=== PATIENT | female | born 2000 | race Caucasian/White ===

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

== ENCOUNTER 2018-08-06 19:27 | Inpatient (IN) | payer MEDICAID ==
[2018-08-06] MEDS: SOD CHLORIDE 0.9% 1,000 ML IV (23:31)
[2018-08-06] MEDS: ONDANSETRON 4 MG INJ IV (23:31)
[2018-08-06 23:41] LABS: ABNORMAL IP MESSAGE 1; HEMATOCRIT 30.6 % (37.0-47.0); HEMOGLOBIN 10.3 g/dl (12.0-16.0); MEAN CORPUSCULAR HEMOGLOBIN 29.7 pg (29.0-33.0); MEAN CORPUSCULAR HGB CONC 33.7 g/dl (32.0-37.0); MEAN CORPUSCULAR VOLUME 88.2 fl (72.0-104.0); MEAN PLATELET VOLUME 12.3 fl (7.4-10.4); PLATELET COUNT 125 10^3/UL (140-415); RED BLOOD COUNT 3.47 10^6/ul (4.20-5.40); RED CELL DISTRIBUTION WIDTH 14.3 % (11.5-14.5)
[2018-08-06 23:41] LABS: WHITE BLOOD COUNT 1.9 10^3/ul (4.8-10.8)
[2018-08-06 23:46] LABS: ADD MAN DIFF? YES; POSITIVE DIFF @See below
[2018-08-06 23:55] LABS: ADD UMIC YES; UR ASCORBIC ACID NEGATIVE (NEGATIVE); UR BACTERIA FEW /HPF (NONE SEEN); UR BILIRUBIN (Dip) NEGATIVE (NEGATIVE); UR BLOOD (Dip) 2+ mg/dL (NEGATIVE); UR CLARITY SLIGHTLY CLOUDY (CLEAR); UR COLOR AMBER (YELLOW); UR GLUCOSE (Dip) NEGATIVE (NEGATIVE); UR KETONES (Dip) NEGATIVE (NEGATIVE); UR LEUKOCYTE ESTERASE (Dip) NEGATIVE Leu/ul (NEGATIVE); UR NITRITE (Dip) NEGATIVE (NEGATIVE); UR RBC 10 /HPF (0-5); UR SPECIFIC GRAVITY (Dip) 1.019 (1.003-1.030); UR TOTAL PROTEIN (Dip) 3+ mg/dl (NEGATIVE); UR UROBILINOGEN (Dip) 1+ mg/dL (NEGATIVE); UR WBC 9 /HPF (0-5)
[2018-08-07 00:03] LABS: ALANINE AMINOTRANSFERASE 446 IU/L (13-69); ALBUMIN 2.5 g/dl (3.3-4.9); ALBUMIN/GLOBULIN RATIO 0.62; ALKALINE PHOSPHATASE 174 IU/L (42-121); ANION GAP 5 (5-13); BILIRUBIN,INDIRECT 0.4 mg/dl (0-1.1); BILIRUBIN,TOTAL 0.4 mg/dl (0.2-1.3); BLOOD UREA NITROGEN 24 mg/dl (7-20); CALCIUM 7.3 mg/dl (8.4-10.2); CARBON DIOXIDE 20 mmol/L (21-31); CHLORIDE 109 mmol/L (97-110); CREATININE 1.39 mg/dl (0.44-1.00); Estimated GFR 49 mL/min (>60); GLUCOSE 104 mg/dl (70-220); LIPASE 512 U/L (23-300); POTASSIUM 4.3 mmol/L (3.5-5.1); SODIUM 134 mmol/L (135-144); TOTAL PROTEIN 6.5 g/dl (6.1-8.1)
[2018-08-07 00:07] LABS: INR 0.89; PARTIAL THROMBOPLASTIN TIME 37.4 Sec (23.0-35.0); PROTIME 12.2 Sec (11.9-14.9)
[2018-08-07 00:10] LABS: ASPARTATE AMINO TRANSFERASE 777 IU/L (15-46)
[2018-08-07] MEDS: KETOROLAC 15 MG INJ IV (00:59)
[2018-08-07] MEDS: ONDANSETRON 4 MG INJ IV ×4 (02:32→17:50)
[2018-08-07] MEDS: morphine 2 MG INJ IV (02:33)
[2018-08-07 03:14] LABS: ANISOCYTOSIS 1+ (0-0); BAND NEUTROPHILS % (M) 4 % (0-10); EOSINOPHILS % (M) 6 % (0-7); GIANT THROMBO% (M) 4 % (0-0); LYMPHOCYTES % (M) 5 % (18-55); METAMYELOCYTES %M 1 % (0-0); MONOCYTES % (M) 4 % (0-13); PLATELET ESTIMATE DECREASED; POIKILOCYTOSIS 2+ (0-0); REACTIVE LYMPHOCYTES% (M) 1 % (0-0); SEG NEUT #M 1.5 10^3/ul (1.6-7.5); SEGMENTED NEUTROPHILS (M) % 79 % (30-74); SMUDGE%M 75 % (0-0)
[2018-08-07] MEDS: morphine 4 MG/ML VIAL IV (06:28)
[2018-08-07] MEDS ORDERED: NACL 0.9% 3 ML SYG IV (07:30)
[2018-08-07] MEDS: SOD CHLORIDE 0.9% 1,000 ML IV ×3 (07:39→20:59)
[2018-08-07] MEDS: DEXAMETHASONE 4 MG/ML 1 ML INJ IV ×2 (09:24→20:58)
[2018-08-07] MEDS: HYDROCODONE/APAP (5/325) TAB PO (09:28)
[2018-08-07] MEDS: CEFTRIAXONE 1 GM/50 ML (PMX) 50 ML IVPB (09:33)
[2018-08-07 15:36] LABS: IRON 88 ug/dl (35-150)
[2018-08-07 15:46] LABS: % IRON SATURATION 36 % SAT (22-52); TOTAL IRON BINDING CAPACITY 245 ug/dl (241-421)
[2018-08-07 15:58] LABS: COMPLEMENT C3 < 40 mg/dl (88-165); COMPLEMENT C4 < 8 mg/dl (14-44)
[2018-08-07 16:10] LABS: HEPATITIS B SURFACE ANTIGEN NEGATIVE (NEGATIVE)
[2018-08-07 16:17] LABS: HIV 1&2 ANTIBODY NEGATIVE (NEGATIVE)
[2018-08-07 16:28] LABS: HEPATITIS B CORE ANTIBODY NEGATIVE (NEGATIVE); HEPATITIS C VIRAL ANTIBODY NEGATIVE (NEGATIVE)
[2018-08-07 16:39] LABS: FOLATE 13.9 ng/ml (2.8-20.0)
[2018-08-08] MEDS: ONDANSETRON 4 MG INJ IV ×2 (04:16→23:25)
[2018-08-08] MEDS: HYDROCODONE/APAP (5/325) TAB PO ×4 (04:17→23:28)
[2018-08-08] MEDS: SOD CHLORIDE 0.9% 1,000 ML IV (06:11)
[2018-08-08 06:25] LABS: HAAIG REFLEX REFLEX FILED
[2018-08-08 06:31] LABS: WHITE BLOOD COUNT 1.5 10^3/ul (4.8-10.8)
[2018-08-08 06:31] LABS: ABNORMAL IP MESSAGE 1; HEMOGLOBIN 10.4 g/dl (12.0-16.0); MEAN CORPUSCULAR HEMOGLOBIN 29.8 pg (29.0-33.0); MEAN CORPUSCULAR HGB CONC 33.5 g/dl (32.0-37.0); MEAN CORPUSCULAR VOLUME 88.8 fl (72.0-104.0); MEAN PLATELET VOLUME 12.4 fl (7.4-10.4); PLATELET COUNT 127 10^3/UL (140-415); RED BLOOD COUNT 3.49 10^6/ul (4.20-5.40); RED CELL DISTRIBUTION WIDTH 14.5 % (11.5-14.5)
[2018-08-08 06:35] LABS: POSITIVE DIFF @See below
[2018-08-08 06:36] LABS: ADD MAN DIFF? YES
[2018-08-08 06:49] LABS: ALANINE AMINOTRANSFERASE 282 IU/L (13-69); ALBUMIN 2.1 g/dl (3.3-4.9); ALBUMIN/GLOBULIN RATIO 0.63; ALKALINE PHOSPHATASE 129 IU/L (42-121); ANION GAP 2 (5-13); ASPARTATE AMINO TRANSFERASE 425 IU/L (15-46); BILIRUBIN,INDIRECT 0.3 mg/dl (0-1.1); BILIRUBIN,TOTAL 0.3 mg/dl (0.2-1.3); BLOOD UREA NITROGEN 29 mg/dl (7-20); CALCIUM 6.3 mg/dl (8.4-10.2); CARBON DIOXIDE 20 mmol/L (21-31); CHLORIDE 114 mmol/L (97-110); CREATININE 1.28 mg/dl (0.44-1.00); Estimated GFR 54 mL/min (>60); GLUCOSE 126 mg/dl (70-220); MAGNESIUM 1.2 mg/dl (1.7-2.5); POTASSIUM 4.6 mmol/L (3.5-5.1); SODIUM 136 mmol/L (135-144); TOTAL PROTEIN 5.4 g/dl (6.1-8.1)
[2018-08-08 06:50] LABS: LIPASE 476 U/L (23-300)
[2018-08-08 06:50] LABS: AMYLASE 226 U/L (11-123)
[2018-08-08 06:51] LABS: CHOL/HDL RATIO 6.8 RATIO; HDL CHOLESTEROL 23 mg/dl (33-83); LDL CHOLESTEROL,CALCULATED 73 mg/dl; TRIGLYCERIDES 309 mg/dl (0-149)
[2018-08-08 06:51] LABS: CHOLESTEROL 158 mg/dl (85-185)
[2018-08-08 07:19] LABS: HEPATITIS B SURFACE ANTIGEN NEGATIVE (NEGATIVE)
[2018-08-08 07:37] LABS: HEPATITIS B CORE ANTIBODY NEGATIVE (NEGATIVE); HEPATITIS C VIRAL ANTIBODY NEGATIVE (NEGATIVE)
[2018-08-08 08:05] LABS: BAND NEUTROPHILS #M 0.3 10^3/ul (0.0-0.6); BAND NEUTROPHILS % (M) 22 % (0-10); BURR CELLS 3+ (0-0); GIANT THROMBO% (M) 30 % (0-0); LYMPHOCYTES #M 0.1 10^3/ul (0.8-2.9); LYMPHOCYTES % (M) 10 % (18-55); MONOCYTES % (M) 5 % (0-13); MYELOCYTES % (M) 3 % (0-0); PLATELET ESTIMATE DECREASED; POIKILOCYTOSIS 3+ (0-0); REACTIVE LYMPHOCYTES% (M) 1 % (0-0); SEG NEUT #M 0.9 10^3/ul (1.6-7.5); SEGMENTED NEUTROPHILS (M) % 59 % (30-74); SMUDGE%M 41 % (0-0); SPHEROCYTES 1+ (0-0)
[2018-08-08] MEDS ORDERED: METHYLPRED. NA SUCC 500 MG in DEXTROSE 5% 50 ML IVPB (08:12)
[2018-08-08 08:40] LABS: IMMUNOGLOBULIN A 330 mg/dl (70-400); IMMUNOGLOBULIN G 1639 mg/dl (700-1600); IMMUNOGLOBULIN M 196 mg/dl (40-230)
[2018-08-08] MEDS: CEFTRIAXONE 1 GM/50 ML (PMX) 50 ML IVPB (09:38)
[2018-08-08] MEDS: MAGNESIUM SULFATE 2 GM/50 ML 50 ML IVPB (09:54)
[2018-08-08 10:42] LABS: C-REACTIVE PROTEIN < 0.5 mg/dl (0.0-0.9)
[2018-08-08] MEDS: METHYLPRED. NA SUCC 500 MG in DEXTROSE 5% 50 ML IVPB (12:39)
[2018-08-08] MEDS: MAGNESIUM SULFATE 4 GM/100 ML 100 ML IVPB (17:17)
[2018-08-08 20:22] LABS: EBV VIRAL CAPSID AG AB (IGM) <36.00 U/mL
[2018-08-08 21:33] LABS: RHEUMATOID FACTOR NEGATIVE (NEGATIVE)
[2018-08-09] MEDS: SOD CHLORIDE 0.9% 1,000 ML IV ×3 (03:36→17:55)
[2018-08-09] MEDS: ONDANSETRON 4 MG INJ IV (07:21)
[2018-08-09] MEDS: HYDROCODONE/APAP (5/325) TAB PO ×3 (07:21→22:23)
[2018-08-09] MEDS: CEFTRIAXONE 1 GM/50 ML (PMX) 50 ML IVPB (08:09)
[2018-08-09 08:47] LABS: ABNORMAL IP MESSAGE 1; HEMOGLOBIN 10.4 g/dl (12.0-16.0); MEAN CORPUSCULAR HEMOGLOBIN 29.7 pg (29.0-33.0); MEAN CORPUSCULAR HGB CONC 33.5 g/dl (32.0-37.0); MEAN CORPUSCULAR VOLUME 88.6 fl (72.0-104.0); MEAN PLATELET VOLUME 12.4 fl (7.4-10.4); PLATELET COUNT 180 10^3/UL (140-415); RED CELL DISTRIBUTION WIDTH 14.7 % (11.5-14.5)
[2018-08-09 08:47] LABS: WHITE BLOOD COUNT 2.9 10^3/ul (4.8-10.8)
[2018-08-09 08:50] LABS: ADD MAN DIFF? YES; POSITIVE DIFF @See below
[2018-08-09 09:02] LABS: ANION GAP 3 (5-13); BLOOD UREA NITROGEN 28 mg/dl (7-20); CARBON DIOXIDE 21 mmol/L (21-31); CHLORIDE 115 mmol/L (97-110); CREATININE 1.13 mg/dl (0.44-1.00); Estimated GFR > 60 mL/min (>60); GLUCOSE 131 mg/dl (70-220); MAGNESIUM 2.6 mg/dl (1.7-2.5); PHOSPHORUS 3.4 mg/dl (2.5-4.9); POTASSIUM 3.8 mmol/L (3.5-5.1); SODIUM 139 mmol/L (135-144)
[2018-08-09 09:09] LABS: CALCIUM 5.9 mg/dl (8.4-10.2)
[2018-08-09] MEDS: ALBUTEROL/IPRATROPIUM (NEB) 3 ML AMP HHN (09:13)
[2018-08-09] MEDS: METHYLPRED. NA SUCC 1,000 MG in DEXTROSE 5% 50 ML IVPB (09:50)
[2018-08-09 10:24] LABS: BAND NEUTROPHILS #M 0.2 10^3/ul (0.0-0.6); BAND NEUTROPHILS % (M) 8 % (0-10); BURR CELLS 1+ (0-0); GIANT THROMBO% (M) 6 % (0-0); LYMPHOCYTES #M 0.2 10^3/ul (0.8-2.9); LYMPHOCYTES % (M) 10 % (18-55); METAMYELOCYTES %M 1 % (0-0); MONOCYTE #M 0.1 10^3/ul (0.3-0.9); MONOCYTES % (M) 5 % (0-13); OVALOCYTES 1+ (0-0); PLATELET ESTIMATE NORMAL; POIKILOCYTOSIS 3+ (0-0); POLYCHROMASIA 2+ (0-0); PROMYELOCYTES % (M) 1 % (0-0); REACTIVE LYMPHOCYTES% (M) 2 % (0-0); SEG NEUT #M 2.1 10^3/ul (1.6-7.5); SEGMENTED NEUTROPHILS (M) % 73 % (30-74); SMUDGE%M 60 % (0-0)
[2018-08-09 11:26] LABS: MYELOPEROXIDASE ANTIBODY <1.0 AI; PROTEINASE-3 ANTIBODY <1.0 AI
[2018-08-09 12:12] LABS: MITOCHONDRIAL TB NEGATIVE (NEGATIVE); SMOOTH MUSCLE AB SCREEN NEGATIVE (NEGATIVE)
[2018-08-09] MEDS: CALCIUM GLUCONATE 10% 2 GM in DEXTROSE 5% 100 ML IVPB (12:24)
[2018-08-09] MEDS: LIDOCAINE 1% (MPF) 5 ML VIAL (12:36)
[2018-08-09 16:28] LABS: CSF RBC 0 /uL (0-0); CSF WBC 2 /cmm (0-10)
[2018-08-09 16:33] LABS: CSF RBC 0 /uL (0-0); CSF WBC 1 /cmm (0-10)
[2018-08-09 16:43] LABS: CSF CLARITY CLEAR; CSF VOLUME 9.5 ml; CSF#TUBES REC'D 4
[2018-08-09 16:43] LABS: CSF COLOR COLORLESS
[2018-08-09 16:44] LABS: CSF#TUBE COUNT TUBE#4
[2018-08-09 16:45] LABS: CSF CLARITY CLEAR; CSF COLOR COLORLESS; CSF VOLUME 9.5 ml
[2018-08-09 16:46] LABS: CSF#TUBE COUNT TUBE#1; CSF#TUBES REC'D 4
[2018-08-09 16:56] LABS: ANTI-DNA (DOUBLE STRANDED) <95 U/mL (< 301)
[2018-08-09 17:01] LABS: TOTAL PROTEIN,CSF 40 mg/dl (12-60)
[2018-08-09 17:01] LABS: GLUCOSE,CSF 90 mg/dl (50-80)
[2018-08-09] MEDS: DRONABINOL 2.5 MG CAP PO (17:53)
[2018-08-09 21:32] LABS: CMV DNA QL SOURCE WHOLE BLOOD
[2018-08-10 08:30] LABS: ADD MAN DIFF? NO
[2018-08-10] MEDS: DRONABINOL 2.5 MG CAP PO (08:31)
[2018-08-10] MEDS: METHYLPRED. NA SUCC 1,000 MG in DEXTROSE 5% 50 ML IVPB (08:32)
[2018-08-10 08:37] LABS: ABNORMAL IP MESSAGE 1; HEMATOCRIT 28.5 % (37.0-47.0); HEMOGLOBIN 9.6 g/dl (12.0-16.0); LYMPHOCYTES # 0.5 10^3/ul (0.8-2.9); LYMPHOCYTES % 11.6 % (18.0-55.0); MEAN CORPUSCULAR HEMOGLOBIN 29.8 pg (29.0-33.0); MEAN CORPUSCULAR HGB CONC 33.7 g/dl (32.0-37.0); MEAN CORPUSCULAR VOLUME 88.5 fl (72.0-104.0); MEAN PLATELET VOLUME 11.9 fl (7.4-10.4); MONOCYTE # 0.6 10^3/ul (0.3-0.9); MONOCYTES % 14.5 % (0.0-13.0); NEUTROPHILS % 72.7 % (30.0-74.0); PLATELET COUNT 202 10^3/UL (140-415); RED BLOOD COUNT 3.22 10^6/ul (4.20-5.40); RED CELL DISTRIBUTION WIDTH 14.7 % (11.5-14.5)
[2018-08-10 08:37] LABS: WHITE BLOOD COUNT 4.2 10^3/ul (4.8-10.8)
[2018-08-10 08:41] LABS: POSITIVE DIFF @See below
[2018-08-10 08:57] LABS: ALANINE AMINOTRANSFERASE 211 IU/L (13-69); ALBUMIN 2.2 g/dl (3.3-4.9); ALBUMIN/GLOBULIN RATIO 0.64; ALKALINE PHOSPHATASE 143 IU/L (42-121); ANION GAP 4 (5-13); ASPARTATE AMINO TRANSFERASE 240 IU/L (15-46); BILIRUBIN,INDIRECT 0.2 mg/dl (0-1.1); BILIRUBIN,TOTAL 0.2 mg/dl (0.2-1.3); BLOOD UREA NITROGEN 26 mg/dl (7-20); CALCIUM 6.4 mg/dl (8.4-10.2); CARBON DIOXIDE 21 mmol/L (21-31); CHLORIDE 117 mmol/L (97-110); Estimated GFR > 60 mL/min (>60); GLUCOSE 112 mg/dl (70-220); LIPASE 458 U/L (23-300); POTASSIUM 3.5 mmol/L (3.5-5.1); SODIUM 142 mmol/L (135-144); TOTAL PROTEIN 5.6 g/dl (6.1-8.1)
[2018-08-10 08:59] LABS: MAGNESIUM 1.8 mg/dl (1.7-2.5)
[2018-08-10 08:59] LABS: PHOSPHORUS 3.3 mg/dl (2.5-4.9)
[2018-08-10] MEDS: CEFTRIAXONE 1 GM/50 ML (PMX) 50 ML IVPB (09:22)
[2018-08-10] MEDS: CHOLECALCIFEROL 1,000 UNIT TAB PO (09:28)
[2018-08-10] MEDS: HYDROCODONE/APAP (5/325) TAB PO ×3 (09:29→23:21)
[2018-08-10] MEDS: ONDANSETRON 4 MG INJ IV (12:35)
[2018-08-11] MEDS: ONDANSETRON 4 MG INJ IV ×3 (01:29→14:30)
[2018-08-11] MEDS: morphine 4 MG/ML VIAL IV ×3 (03:10→21:07)
[2018-08-11] MEDS: HYDROCODONE/APAP (5/325) TAB PO ×4 (04:10→20:27)
[2018-08-11 08:09] LABS: ADD MAN DIFF? NO
[2018-08-11 08:15] LABS: WHITE BLOOD COUNT 4.1 10^3/ul (4.8-10.8)
[2018-08-11 08:15] LABS: HEMATOCRIT 28.2 % (37.0-47.0); HEMOGLOBIN 9.5 g/dl (12.0-16.0); LYMPHOCYTES # 0.6 10^3/ul (0.8-2.9); MEAN CORPUSCULAR HEMOGLOBIN 29.7 pg (29.0-33.0); MEAN CORPUSCULAR HGB CONC 33.7 g/dl (32.0-37.0); MEAN CORPUSCULAR VOLUME 88.1 fl (72.0-104.0); MEAN PLATELET VOLUME 12.3 fl (7.4-10.4); MONOCYTE # 0.6 10^3/ul (0.3-0.9); MONOCYTES % 14.5 % (0.0-13.0); NEUTROPHIL # 2.8 10^3/ul (1.6-7.5); NEUTROPHILS % 69.5 % (30.0-74.0); PLATELET COUNT 198 10^3/UL (140-415); RED CELL DISTRIBUTION WIDTH 14.4 % (11.5-14.5)
[2018-08-11] MEDS: CEFTRIAXONE 1 GM/50 ML (PMX) 50 ML IVPB (08:16)
[2018-08-11] MEDS: CHOLECALCIFEROL 1,000 UNIT TAB PO (08:16)
[2018-08-11] MEDS: DRONABINOL 2.5 MG CAP PO ×3 (08:17→21:45)
[2018-08-11 08:44] LABS: ALANINE AMINOTRANSFERASE 186 IU/L (13-69); ALBUMIN 2.2 g/dl (3.3-4.9); ALBUMIN/GLOBULIN RATIO 0.68; ALKALINE PHOSPHATASE 122 IU/L (42-121); ANION GAP 6 (5-13); ASPARTATE AMINO TRANSFERASE 166 IU/L (15-46); BILIRUBIN,INDIRECT 0.3 mg/dl (0-1.1); BILIRUBIN,TOTAL 0.3 mg/dl (0.2-1.3); BLOOD UREA NITROGEN 30 mg/dl (7-20); CALCIUM 6.4 mg/dl (8.4-10.2); CARBON DIOXIDE 22 mmol/L (21-31); CHLORIDE 112 mmol/L (97-110); CREATININE 0.99 mg/dl (0.44-1.00); Estimated GFR > 60 mL/min (>60); GLUCOSE 111 mg/dl (70-220); SODIUM 140 mmol/L (135-144); TOTAL PROTEIN 5.4 g/dl (6.1-8.1)
[2018-08-11 08:48] LABS: PHOSPHORUS 4.1 mg/dl (2.5-4.9)
[2018-08-11 08:48] LABS: MAGNESIUM 1.5 mg/dl (1.7-2.5)
[2018-08-11] MEDS: METHYLPRED. NA SUCC 1,000 MG in DEXTROSE 5% 50 ML IVPB (09:11)
[2018-08-11] MEDS: CALCITRIOL 0.25 MCG CAP PO (09:17)
[2018-08-11 09:26] LABS: ADD UMIC YES; UR ASCORBIC ACID NEGATIVE (NEGATIVE); UR BILIRUBIN (Dip) NEGATIVE (NEGATIVE); UR BLOOD (Dip) 2+ mg/dL (NEGATIVE); UR CLARITY CLEAR (CLEAR); UR COLOR YELLOW (YELLOW); UR GLUCOSE (Dip) NEGATIVE (NEGATIVE); UR KETONES (Dip) NEGATIVE (NEGATIVE); UR LEUKOCYTE ESTERASE (Dip) NEGATIVE Leu/ul (NEGATIVE); UR NITRITE (Dip) NEGATIVE (NEGATIVE); UR RBC 4 /HPF (0-5); UR SPECIFIC GRAVITY (Dip) 1.016 (1.003-1.030); UR TOTAL PROTEIN (Dip) 3+ mg/dl (NEGATIVE); UR UROBILINOGEN (Dip) 1+ mg/dL (NEGATIVE); UR WBC 11 /HPF (0-5)
[2018-08-11 09:33] LABS: CREATININE,URINE RANDOM 50.33 mg/dl (20-320)
[2018-08-11 09:33] LABS: SODIUM,URINE RANDOM 136 mmol/L (30-90)
[2018-08-11 11:21] LABS: COMPLEMENT C3 < 40 mg/dl (88-165); COMPLEMENT C4 < 8 mg/dl (14-44)
[2018-08-11] MEDS: POTASSIUM CHLORIDE (SR) 20 MEQ TAB PO (14:27)
[2018-08-11] MEDS: ALBUTEROL/IPRATROPIUM (NEB) 3 ML AMP HHN (19:04)
[2018-08-12 00:11] LABS: PLATELET ANTIBODY - IGA NEGATIVE (NEGATIVE); PLATELET ANTIBODY - IGG NEGATIVE (NEGATIVE); PLATELET ANTIBODY - IGM NEGATIVE (NEGATIVE)
[2018-08-12] MEDS: ONDANSETRON 4 MG INJ IV (03:11)
[2018-08-12] MEDS: DRONABINOL 2.5 MG CAP PO (08:06)
[2018-08-12] MEDS: CALCITRIOL 0.25 MCG CAP PO (08:07)
[2018-08-12] MEDS: CHOLECALCIFEROL 1,000 UNIT TAB PO (08:07)
[2018-08-12] MEDS: HYDROCODONE/APAP (5/325) TAB PO ×3 (08:07→19:02)
[2018-08-12] MEDS: CEFTRIAXONE 1 GM/50 ML (PMX) 50 ML IVPB (08:08)
[2018-08-12 08:37] LABS: ADD MAN DIFF? NO
[2018-08-12] MEDS ORDERED: morphine 2 MG INJ IV (08:37)
[2018-08-12 08:42] LABS: HEMATOCRIT 27.3 % (37.0-47.0); HEMOGLOBIN 9.3 g/dl (12.0-16.0); LYMPHOCYTES # 0.7 10^3/ul (0.8-2.9); LYMPHOCYTES % 18.1 % (18.0-55.0); MEAN CORPUSCULAR HEMOGLOBIN 29.4 pg (29.0-33.0); MEAN CORPUSCULAR HGB CONC 34.1 g/dl (32.0-37.0); MEAN CORPUSCULAR VOLUME 86.4 fl (72.0-104.0); MEAN PLATELET VOLUME 11.5 fl (7.4-10.4); MONOCYTE # 0.5 10^3/ul (0.3-0.9); NEUTROPHIL # 2.8 10^3/ul (1.6-7.5); NEUTROPHILS % 68.2 % (30.0-74.0); PLATELET COUNT 201 10^3/UL (140-415); RED BLOOD COUNT 3.16 10^6/ul (4.20-5.40); RED CELL DISTRIBUTION WIDTH 14.2 % (11.5-14.5)
[2018-08-12 08:42] LABS: WHITE BLOOD COUNT 4.1 10^3/ul (4.8-10.8)
[2018-08-12 09:04] LABS: PHOSPHORUS 3.5 mg/dl (2.5-4.9)
[2018-08-12 09:04] LABS: MAGNESIUM 1.5 mg/dl (1.7-2.5)
[2018-08-12] MEDS: morphine 2 MG INJ IV ×2 (09:06→20:52)
[2018-08-12 09:16] LABS: ALANINE AMINOTRANSFERASE 169 IU/L (13-69); ALBUMIN 2.2 g/dl (3.3-4.9); ALBUMIN/GLOBULIN RATIO 0.68; ALKALINE PHOSPHATASE 97 IU/L (42-121); ANION GAP 2 (5-13); ASPARTATE AMINO TRANSFERASE 129 IU/L (15-46); BILIRUBIN,INDIRECT 0.4 mg/dl (0-1.1); BILIRUBIN,TOTAL 0.4 mg/dl (0.2-1.3); BLOOD UREA NITROGEN 38 mg/dl (7-20); CALCIUM 6.9 mg/dl (8.4-10.2); CARBON DIOXIDE 26 mmol/L (21-31); CHLORIDE 112 mmol/L (97-110); CREATINE KINASE 133 IU/L (23-200); CREATININE 0.92 mg/dl (0.44-1.00); Estimated GFR > 60 mL/min (>60); GLUCOSE 97 mg/dl (70-220); POTASSIUM 3.3 mmol/L (3.5-5.1); SODIUM 140 mmol/L (135-144); TOTAL PROTEIN 5.4 g/dl (6.1-8.1)
[2018-08-12 10:57] LABS: HEXAGONAL PHASE CONFIRMATION POSITIVE (NEGATIVE); THROMBIN CLOTTING TIME 19 sec (13-19)
[2018-08-12] MEDS: ACETAMINOPHEN 325 MG TAB PO (15:20)
[2018-08-12 17:17] LABS: CREATININE, RANDOM URINE 58 mg/dL (20-275); MICROALBUMIN 198.6 mg/dL; MICROALBUMIN/CREATININE RATIO 3424 (<30)
[2018-08-12 18:46] LABS: ANA SCREEN POSITIVE (NEGATIVE)
[2018-08-12] MEDS: KETOROLAC 15 MG INJ IV (22:06)
[2018-08-13] MEDS: ONDANSETRON 4 MG INJ IV ×3 (04:45→22:26)
[2018-08-13] MEDS: morphine 2 MG INJ IV ×3 (04:52→15:25)
[2018-08-13] MEDS: KETOROLAC 15 MG INJ IV ×2 (05:25→13:16)
[2018-08-13 08:03] LABS: ADD MAN DIFF? NO
[2018-08-13 08:07] LABS: HEMATOCRIT 26.3 % (37.0-47.0); LYMPHOCYTES # 0.9 10^3/ul (0.8-2.9); LYMPHOCYTES % 17.2 % (18.0-55.0); MEAN CORPUSCULAR HEMOGLOBIN 29.8 pg (29.0-33.0); MEAN CORPUSCULAR HGB CONC 34.2 g/dl (32.0-37.0); MEAN CORPUSCULAR VOLUME 87.1 fl (72.0-104.0); MEAN PLATELET VOLUME 11.8 fl (7.4-10.4); MONOCYTE # 0.4 10^3/ul (0.3-0.9); MONOCYTES % 8.5 % (0.0-13.0); NEUTROPHIL # 3.8 10^3/ul (1.6-7.5); NEUTROPHILS % 73.1 % (30.0-74.0); PLATELET COUNT 184 10^3/UL (140-415); RED BLOOD COUNT 3.02 10^6/ul (4.20-5.40)
[2018-08-13 08:07] LABS: WHITE BLOOD COUNT 5.2 10^3/ul (4.8-10.8)
[2018-08-13 08:08] LABS: RETICULOCYTE RBC 2.95
[2018-08-13 08:08] LABS: RETICULOCYTE COUNT % 1.4 % (0.5-1.5)
[2018-08-13 08:33] LABS: ANION GAP 2 (5-13); BLOOD UREA NITROGEN 40 mg/dl (7-20); CARBON DIOXIDE 27 mmol/L (21-31); CHLORIDE 111 mmol/L (97-110); Estimated GFR > 60 mL/min (>60); GLUCOSE 91 mg/dl (70-220); MAGNESIUM 1.4 mg/dl (1.7-2.5); PHOSPHORUS 3.5 mg/dl (2.5-4.9); POTASSIUM 3.1 mmol/L (3.5-5.1); SODIUM 140 mmol/L (135-144)
[2018-08-13] MEDS: CHOLECALCIFEROL 1,000 UNIT TAB PO (09:00)
[2018-08-13] MEDS: DRONABINOL 2.5 MG CAP PO (09:00)
[2018-08-13] MEDS: CALCITRIOL 0.25 MCG CAP PO (09:00)
[2018-08-13] MEDS: HYDROmorphONE 0.5 MG/0.5 ML SYG IV (10:15)
[2018-08-13 11:57] LABS: PROTEIN, TOTAL 5.1 g/dL (6.3-8.2)
[2018-08-13] MEDS ORDERED: morphine 2 MG INJ IV (13:00)
[2018-08-13] MEDS: METHYLPREDNISOLONE 125 MG INJ IV ×2 (13:11→22:25)
[2018-08-13 15:08] LABS: ANA PATTERN HOMOGENEOUS
[2018-08-13] MEDS: POTASSIUM CHLORIDE (SR) 20 MEQ TAB PO (15:30)
[2018-08-13] MEDS: HYDROmorphONE 1 MG/ML SYG IV (16:25)
[2018-08-13 17:31] LABS: CARDIOLIPIN AB - IGA <11 APL; CARDIOLIPIN AB - IGG 37 GPL; CARDIOLIPIN AB - IGM 18 MPL; CREATININE, RANDOM URINE 85 mg/dL (20-275); PROTEIN/CREATININE RATIO 6153 mg/g creat (21-161)
[2018-08-13] MEDS: MAGNESIUM SULFATE 1 GM/D5W 100 ML IVPB (18:07)
[2018-08-13 19:53] LABS: ANA SCREEN POSITIVE (NEGATIVE)
[2018-08-13 23:48] LABS: ALBUMIN 2.4 g/dL (3.8-4.8); ALPHA-1-GLOBULINS 0.2 g/dL (0.2-0.3); ALPHA-2-GLOBULINS 0.7 g/dL (0.5-0.9); BETA 2 GLOBULINS 0.3 g/dL (0.2-0.5); BETA GLOBULINS 0.3 g/dL (0.4-0.6); GAMMA GLOBULINS 1.3 g/dL (0.8-1.7)
[2018-08-14] MEDS: METHYLPREDNISOLONE 125 MG INJ IV ×3 (05:16→21:30)
[2018-08-14] MEDS: morphine 2 MG INJ IV (06:48)
[2018-08-14] MEDS: ONDANSETRON 4 MG INJ IV ×2 (06:53→22:28)
[2018-08-14] MEDS ORDERED: ADENOSINE 3 MG/ML SYRINGE IV (07:00)
[2018-08-14] MEDS ORDERED: METOPROLOL 5 MG INJ (07:00)
[2018-08-14] MEDS: CALCITRIOL 0.25 MCG CAP PO (09:00)
[2018-08-14] MEDS: CHOLECALCIFEROL 1,000 UNIT TAB PO (09:00)
[2018-08-14] MEDS: DRONABINOL 2.5 MG CAP PO (09:00)
[2018-08-14 09:28] LABS: ADD MAN DIFF? NO
[2018-08-14 09:30] LABS: ABNORMAL IP MESSAGE 1; BASOPHILS % 0.2 % (0.0-2.0); HEMATOCRIT 25.5 % (37.0-47.0); HEMOGLOBIN 8.9 g/dl (12.0-16.0); LYMPHOCYTES # 0.4 10^3/ul (0.8-2.9); LYMPHOCYTES % 7.5 % (18.0-55.0); MEAN CORPUSCULAR HEMOGLOBIN 30.2 pg (29.0-33.0); MEAN CORPUSCULAR HGB CONC 34.9 g/dl (32.0-37.0); MEAN CORPUSCULAR VOLUME 86.4 fl (72.0-104.0); MEAN PLATELET VOLUME 11.5 fl (7.4-10.4); MONOCYTE # 0.2 10^3/ul (0.3-0.9); MONOCYTES % 4.1 % (0.0-13.0); NEUTROPHIL # 5.2 10^3/ul (1.6-7.5); NEUTROPHILS % 87.4 % (30.0-74.0); PLATELET COUNT 225 10^3/UL (140-415); RED BLOOD COUNT 2.95 10^6/ul (4.20-5.40); RED CELL DISTRIBUTION WIDTH 13.2 % (11.5-14.5)
[2018-08-14 09:30] LABS: WHITE BLOOD COUNT 5.9 10^3/ul (4.8-10.8)
[2018-08-14 09:33] LABS: POSITIVE DIFF @See below
[2018-08-14 10:03] LABS: ALANINE AMINOTRANSFERASE 152 IU/L (13-69); ALBUMIN 2.3 g/dl (3.3-4.9); ALBUMIN/GLOBULIN RATIO 0.71; ALKALINE PHOSPHATASE 102 IU/L (42-121); ANION GAP 5 (5-13); ASPARTATE AMINO TRANSFERASE 82 IU/L (15-46); BILIRUBIN,INDIRECT 0.6 mg/dl (0-1.1); BILIRUBIN,TOTAL 0.6 mg/dl (0.2-1.3); BLOOD UREA NITROGEN 32 mg/dl (7-20); CALCIUM 7.1 mg/dl (8.4-10.2); CARBON DIOXIDE 26 mmol/L (21-31); CHLORIDE 107 mmol/L (97-110); CREATININE 0.59 mg/dl (0.44-1.00); Estimated GFR > 60 mL/min (>60); GLUCOSE 131 mg/dl (70-220); POTASSIUM 3.5 mmol/L (3.5-5.1); SODIUM 138 mmol/L (135-144); TOTAL PROTEIN 5.5 g/dl (6.1-8.1)
[2018-08-14 10:08] LABS: ANION GAP 4 (5-13); BLOOD UREA NITROGEN 33 mg/dl (7-20); CALCIUM 7.1 mg/dl (8.4-10.2); CARBON DIOXIDE 25 mmol/L (21-31); CHLORIDE 108 mmol/L (97-110); CREATININE 0.62 mg/dl (0.44-1.00); Estimated GFR > 60 mL/min (>60); GLUCOSE 132 mg/dl (70-220); MAGNESIUM 1.5 mg/dl (1.7-2.5); PHOSPHORUS 3.9 mg/dl (2.5-4.9); POTASSIUM 3.4 mmol/L (3.5-5.1); SODIUM 137 mmol/L (135-144)
[2018-08-14] MEDS: HYDROmorphONE 1 MG/ML SYG IV ×2 (12:02→21:31)
[2018-08-14] MEDS: POTASSIUM CHLORIDE (SR) 20 MEQ TAB PO (13:45)
[2018-08-14 16:21] LABS: PROTIME 12.3 Sec (11.9-14.9)
[2018-08-14] MEDS: ALBUTEROL/IPRATROPIUM (NEB) 3 ML AMP HHN (17:36)
[2018-08-14] MEDS: METOPROLOL 5 MG INJ IV (18:56)
[2018-08-14 19:17] LABS: ANA SCREEN POSITIVE (NEGATIVE)
[2018-08-14 20:02] LABS: ANA PATTERN HOMOGENEOUS
[2018-08-14] MEDS: MAGNESIUM SULFATE 2 GM/50 ML 50 ML IVPB (21:31)
[2018-08-15] MEDS: ONDANSETRON 4 MG INJ IV (05:14)
[2018-08-15] MEDS: METHYLPREDNISOLONE 125 MG INJ IV ×3 (05:14→21:15)
[2018-08-15 05:53] LABS: ADD MAN DIFF? NO
[2018-08-15 06:04] LABS: HEMOGLOBIN 8.4 g/dl (12.0-16.0); LYMPHOCYTES # 0.6 10^3/ul (0.8-2.9); LYMPHOCYTES % 6.8 % (18.0-55.0); MEAN CORPUSCULAR HEMOGLOBIN 30.4 pg (29.0-33.0); MEAN PLATELET VOLUME 11.7 fl (7.4-10.4); MONOCYTE # 0.6 10^3/ul (0.3-0.9); MONOCYTES % 6.5 % (0.0-13.0); NEUTROPHIL # 7.6 10^3/ul (1.6-7.5); NEUTROPHILS % 85.6 % (30.0-74.0); PLATELET COUNT 228 10^3/UL (140-415); RED BLOOD COUNT 2.76 10^6/ul (4.20-5.40); RED CELL DISTRIBUTION WIDTH 13.6 % (11.5-14.5)
[2018-08-15 06:04] LABS: WHITE BLOOD COUNT 8.8 10^3/ul (4.8-10.8)
[2018-08-15 06:23] LABS: PHOSPHORUS 3.9 mg/dl (2.5-4.9)
[2018-08-15 06:23] LABS: MAGNESIUM 2.2 mg/dl (1.7-2.5)
[2018-08-15 06:32] LABS: ALANINE AMINOTRANSFERASE 114 IU/L (13-69); ALBUMIN 2.3 g/dl (3.3-4.9); ALBUMIN/GLOBULIN RATIO 0.76; ALKALINE PHOSPHATASE 112 IU/L (42-121); ANION GAP 4 (5-13); ASPARTATE AMINO TRANSFERASE 53 IU/L (15-46); BILIRUBIN,INDIRECT 0.3 mg/dl (0-1.1); BILIRUBIN,TOTAL 0.3 mg/dl (0.2-1.3); BLOOD UREA NITROGEN 29 mg/dl (7-20); CALCIUM 7.3 mg/dl (8.4-10.2); CARBON DIOXIDE 27 mmol/L (21-31); CHLORIDE 109 mmol/L (97-110); CREATININE 0.65 mg/dl (0.44-1.00); Estimated GFR > 60 mL/min (>60); GLUCOSE 152 mg/dl (70-220); POTASSIUM 3.8 mmol/L (3.5-5.1); SODIUM 140 mmol/L (135-144); TOTAL PROTEIN 5.3 g/dl (6.1-8.1)
[2018-08-15 06:36] LABS: LIPASE 157 U/L (23-300)
[2018-08-15] MEDS: DRONABINOL 2.5 MG CAP PO (09:00)
[2018-08-15] MEDS: CALCITRIOL 0.25 MCG CAP PO (09:29)
[2018-08-15] MEDS: CHOLECALCIFEROL 1,000 UNIT TAB PO (09:29)
[2018-08-15 10:36] LABS: T4 (THYROXINE) 7.6 ug/dl (5.5-11.0)
[2018-08-15 10:37] LABS: FREE THYROXINE INDEX (Calc) 2.93 ug/ml (0.65-3.89); T3 UPTAKE 38.6 % (23.5-40.5)
[2018-08-15 12:32] LABS: NIL 0.03 IU/mL; QUANTIFERON(R)-TB GOLD NEGATIVE (NEGATIVE); TB-NIL <0.00 IU/mL; TB2-NIL <0.00 IU/mL
[2018-08-15] MEDS: LIDOCAINE 2% (SDV) 5 ML INJ (13:53)
[2018-08-15] MEDS: FENTAnyl 50 MCG/ML VIAL (13:54)
[2018-08-15] MEDS: LIDOCAINE 100 MG SYRINGE (13:58)
[2018-08-15] MEDS: IODIXANOL LOCM 100 ML BTL (16:02)
[2018-08-15] MEDS: SOD CHLORIDE 0.9% 100 ML (16:02)
[2018-08-15] MEDS: HYDROmorphONE 1 MG/ML SYG IV (19:22)
[2018-08-15 19:37] LABS: ANA PATTERN HOMOGENEOUS
[2018-08-16] MEDS: ONDANSETRON 4 MG INJ IV ×3 (03:29→22:58)
[2018-08-16] MEDS: HYDROmorphONE 1 MG/ML SYG IV ×3 (03:29→22:59)
[2018-08-16] MEDS: METHYLPREDNISOLONE 125 MG INJ IV ×3 (05:53→21:01)
[2018-08-16] MEDS: CALCITRIOL 0.25 MCG CAP PO (08:30)
[2018-08-16] MEDS: CHOLECALCIFEROL 1,000 UNIT TAB PO (08:30)
[2018-08-16 10:57] LABS: ADD MAN DIFF? NO
[2018-08-16 11:04] LABS: ABNORMAL IP MESSAGE 1; BASOPHILS % 0.1 % (0.0-2.0); HEMATOCRIT 23.2 % (37.0-47.0); HEMOGLOBIN 7.9 g/dl (12.0-16.0); LYMPHOCYTES # 0.5 10^3/ul (0.8-2.9); MEAN CORPUSCULAR HEMOGLOBIN 29.7 pg (29.0-33.0); MEAN CORPUSCULAR HGB CONC 34.1 g/dl (32.0-37.0); MEAN CORPUSCULAR VOLUME 87.2 fl (72.0-104.0); MEAN PLATELET VOLUME 11.3 fl (7.4-10.4); MONOCYTE # 0.3 10^3/ul (0.3-0.9); NEUTROPHIL # 9.6 10^3/ul (1.6-7.5); NEUTROPHILS % 90.9 % (30.0-74.0); PLATELET COUNT 222 10^3/UL (140-415); RED BLOOD COUNT 2.66 10^6/ul (4.20-5.40); RED CELL DISTRIBUTION WIDTH 13.6 % (11.5-14.5)
[2018-08-16 11:04] LABS: WHITE BLOOD COUNT 10.6 10^3/ul (4.8-10.8)
[2018-08-16 11:06] LABS: POSITIVE DIFF @See below
[2018-08-16 11:18] LABS: ALANINE AMINOTRANSFERASE 94 IU/L (13-69); ALBUMIN 2.3 g/dl (3.3-4.9); ALBUMIN/GLOBULIN RATIO 0.76; ALKALINE PHOSPHATASE 86 IU/L (42-121); ANION GAP 5 (5-13); ASPARTATE AMINO TRANSFERASE 45 IU/L (15-46); BILIRUBIN,INDIRECT 0.4 mg/dl (0-1.1); BILIRUBIN,TOTAL 0.4 mg/dl (0.2-1.3); BLOOD UREA NITROGEN 31 mg/dl (7-20); CALCIUM 7.6 mg/dl (8.4-10.2); CARBON DIOXIDE 26 mmol/L (21-31); CHLORIDE 108 mmol/L (97-110); Estimated GFR > 60 mL/min (>60); GLUCOSE 172 mg/dl (70-220); POTASSIUM 3.7 mmol/L (3.5-5.1); SODIUM 139 mmol/L (135-144); TOTAL PROTEIN 5.3 g/dl (6.1-8.1)
[2018-08-17] MEDS: METHYLPREDNISOLONE 125 MG INJ IV ×3 (06:14→22:26)
[2018-08-17] MEDS: HYDROmorphONE 1 MG/ML SYG IV ×3 (07:20→23:32)
[2018-08-17] MEDS: ONDANSETRON 4 MG INJ IV ×3 (07:20→23:32)
[2018-08-17] MEDS: CALCITRIOL 0.25 MCG CAP PO (08:42)
[2018-08-17] MEDS: CHOLECALCIFEROL 1,000 UNIT TAB PO (08:42)
[2018-08-18 05:46] LABS: ADD MAN DIFF? NO
[2018-08-18 06:08] LABS: ABNORMAL IP MESSAGE 1; BASOPHILS % 0.2 % (0.0-2.0); HEMATOCRIT 23.1 % (37.0-47.0); HEMOGLOBIN 7.9 g/dl (12.0-16.0); LYMPHOCYTES # 0.6 10^3/ul (0.8-2.9); LYMPHOCYTES % 4.6 % (18.0-55.0); MEAN CORPUSCULAR HGB CONC 34.2 g/dl (32.0-37.0); MEAN CORPUSCULAR VOLUME 87.8 fl (72.0-104.0); MEAN PLATELET VOLUME 11.1 fl (7.4-10.4); MONOCYTE # 0.6 10^3/ul (0.3-0.9); MONOCYTES % 5.4 % (0.0-13.0); NEUTROPHIL # 10.4 10^3/ul (1.6-7.5); NEUTROPHILS % 87.4 % (30.0-74.0); PLATELET COUNT 238 10^3/UL (140-415); RED BLOOD COUNT 2.63 10^6/ul (4.20-5.40); RED CELL DISTRIBUTION WIDTH 13.4 % (11.5-14.5)
[2018-08-18 06:08] LABS: WHITE BLOOD COUNT 11.9 10^3/ul (4.8-10.8)
[2018-08-18 06:11] LABS: POSITIVE DIFF @See below
[2018-08-18] MEDS: METHYLPREDNISOLONE 125 MG INJ IV ×2 (06:11→14:37)
[2018-08-18 06:39] LABS: ALANINE AMINOTRANSFERASE 78 IU/L (13-69); ALBUMIN 2.2 g/dl (3.3-4.9); ALBUMIN/GLOBULIN RATIO 0.75; ALKALINE PHOSPHATASE 108 IU/L (42-121); ANION GAP 4 (5-13); ASPARTATE AMINO TRANSFERASE 41 IU/L (15-46); BILIRUBIN,INDIRECT 0.3 mg/dl (0-1.1); BILIRUBIN,TOTAL 0.3 mg/dl (0.2-1.3); BLOOD UREA NITROGEN 34 mg/dl (7-20); CALCIUM 7.4 mg/dl (8.4-10.2); CARBON DIOXIDE 27 mmol/L (21-31); CHLORIDE 107 mmol/L (97-110); CREATININE 0.69 mg/dl (0.44-1.00); Estimated GFR > 60 mL/min (>60); GLUCOSE 206 mg/dl (70-220); POTASSIUM 3.7 mmol/L (3.5-5.1); SODIUM 138 mmol/L (135-144); TOTAL PROTEIN 5.1 g/dl (6.1-8.1)
[2018-08-18 07:06] LABS: PHOSPHORUS 4.4 mg/dl (2.5-4.9)
[2018-08-18 07:06] LABS: MAGNESIUM 1.3 mg/dl (1.7-2.5)
[2018-08-18] MEDS: HYDROmorphONE 1 MG/ML SYG IV (08:11)
[2018-08-18] MEDS: ONDANSETRON 4 MG INJ IV ×2 (08:11→14:37)
[2018-08-18] MEDS: CALCITRIOL 0.25 MCG CAP PO (08:11)
[2018-08-18] MEDS: CHOLECALCIFEROL 1,000 UNIT TAB PO (08:11)
[2018-08-18] MEDS: POLYETHYLENE GLYCOL 17 GM PACKET PO (08:12)
[2018-08-18] MEDS: MAGNESIUM SULFATE 2 GM/50 ML 50 ML IVPB (09:12)
[2018-08-18] MEDS: HYDROmorphONE 0.5 MG/0.5 ML SYG IV (14:37)
== END 2018-08-18 17:53 | disposition home or self-care (01) | DRG 299 ==
LOC: 6WM 08-14 19:45 → MS1 08-18 11:35 → FTE 19:27 → 6WM 08-18 11:44 → 5EC 08-07 05:35
PROC: 0TB03ZX Excision of Right Kidney, Percutaneous Approach, Diagnostic (ICD-10-PCS; principal; 2018-08-15)
DX: I77.89 Other specified disorders of arteries and arterioles (principal); K85.90 Acute pancreatitis without necrosis or infection, unspecified; M31.8 Other specified necrotizing vasculopathies; D61.818 Other pancytopenia; N17.9 Acute kidney failure, unspecified; N39.0 Urinary tract infection, site not specified; E87.2 Acidosis; E44.1 Mild protein-calorie malnutrition; Z68.1 Body mass index [BMI] 19.9 or less, adult; H30.93 Unspecified chorioretinal inflammation, bilateral; E86.0 Dehydration; J45.909 Unspecified asthma, uncomplicated; E83.42 Hypomagnesemia; E83.51 Hypocalcemia; H53.8 Other visual disturbances
CPT/HCPCS: 70543; 70552; 71045; 72156; 74176; 74177; 74181; 76536; 76705; 76775; 77012; 80048; 80053; 80061; 81001; 81003; 82043; 82150; 82306; 82330; 82550; 82570; 82595; 82607; 82652; 82728; 82746; 82784; 82787; 82945; 83540; 83690; 83735; 84100; 84155; 84156; 84157; 84165; 84166; 84300; 84436; 84479; 84702; 84703; 85025; 85045; 85610; 85613; 85651; 85730; 86021; 86022; 86038; 86140; 86147; 86160; 86226; 86255; 86320; 86325; 86376; 86430; 86480; 86664; 86703; 86704; 86709; 86803; 86880; 86885; 87045; 87070; 87086; 87205; 87340; 87496; 89051; 93005; 93306; 94640; 94664